=== PATIENT | male | born 1985 | race Caucasian/White ===

== ENCOUNTER 2025-04-26 21:55 | Emergency (ER) | payer OTHER, SELFPAY ==
[2025-04-26 23:33] LABS: #Basophils 0.05 10x3/uL (0.0-0.2); #Eosinophils Less than 0.03 10x3/uL (0.0-0.5); #Monocytes 1.65 10x3/uL (0.0-1.1); #Neutrophils 9.33 10x3/uL (1.5-8.4); %Basophils 0.4 % (0.0-2.0); %Eosinophils 0.1 % (0.0-6.0); %Lymphocytes 19.1 % (18.0-47.0); %Monocytes 12.0 % (0.0-10.0); %Neutrophils 68.1 % (40.0-75.0); Hematocrit 39.5 % (38.8-50.0); Hemoglobin 14.1 g/dL (13.5-17.5); Mean Corpuscular Hemoglobin 32.3 pg (27.0-33.0); Mean Corpuscular Volume 90.4 fL (81.2-95.1); Platelet Count 256 10x3/uL (150-450); Red Blood Cell (RBC) Count 4.37 10x6/uL (4.32-5.72); White Blood Cell (WBC) Count 13.70 10x3/uL (3.5-10.5)
[2025-04-26 23:43] LABS: INR-International Normal Ratio 1.1; Prothrombin Time 12.4 sec (9.5-12.1)
[2025-04-26] MEDS ORDERED: Lidocaine 1% w/Epinephrine 1:200K 30 ML VIAL ONE (23:46)
[2025-04-26 23:48] LABS: ALT (SGPT) 21 U/L (Less than 45); AST (SGOT) 21 U/L (11-34); Albumin 3.7 g/dL (3.1-4.5); Alkaline Phosphatase 99 U/L (40-110); Anion Gap 14 mmol/L (10-20); BUN (Urea Nitrogen) 8 mg/dL (8.9-20.6); Bilirubin, Total 0.9 mg/dL (0.3-1.2); Calc. Creatinine Clearance 0 mL/min (70-130); Calcium 8.8 mg/dL (7.8-10.44); Carbon Dioxide 22 mmol/L (22-29); Chloride 102 mmol/L (98-107); Globulin 3.4 g/dL (2.4-3.5); Glucose 123 mg/dL (70-105); Potassium 3.3 mmol/L (3.5-5.1); Sodium 135 mmol/L (136-145)
[2025-04-27] MEDS ORDERED: Ketorolac Tromethamine 30 MG (1 mL) VIAL ONE (02:21)
[2025-04-27 02:28] LABS: BF Segmented Neutrophils 25 %; Cell Count Non Hematic 57 %
[2025-04-27 05:15] LABS: Uric Acid 7.8 mg/dL (3.7-7.7)
== END 2025-04-27 03:00 | disposition home or self-care (01) ==
LOC: CSHERS 21:55
DX: M25.561 Pain in right knee (principal); E88.89 Other specified metabolic disorders; M10.9 Gout, unspecified; Z55.6 Problems related to health literacy
CPT/HCPCS: 20610; 80053; 82945; 84550; 84560; 85025; 85610; 87070; 87205; 89051; 89060; 96374; 96375; J1885; J2270